=== PATIENT | male | born 1955 | race Caucasian/White ===

== ENCOUNTER → 2018-08-29 | Outpatient (REF) | payer MEDICARE, MEDICAID ==
[~2018-08-29] MED LIST: ACET65TA; BABY81CH; BISA10SU2; COLA100C2; COUM10TA; KEPPRA; LIPI20TA; LOPR50TA; ONDA-1; SODIUM CLORIDE; TRAVOPROST; senna
== END ==
LOC: M LAB REF 15:37
PROVIDERS: ATTEND Nurse Practitioner Family
DX: B35.1 Tinea unguium (principal)

== ENCOUNTER → 2019-02-10 | Outpatient (REF) | payer MEDICARE, MEDICAID | LOC: M LAB REF 16:24 | PROVIDERS: ATTEND Nurse Practitioner Family | DX: S69.92XD Unspecified injury of left wrist, hand and finger(s), subsequent encounter (principal); B35.1 Tinea unguium ==

== ENCOUNTER → 2020-01-06 | Outpatient (CLI) | payer MEDICARE, MEDICAID ==
--- NOTE | 2020-01-14 09:47 | REP ---
BILATERAL LOWER EXTREMITY ARTERIAL DOPPLER ULTRASOUND HISTORY: Peripheral vascular disease. FINDINGS: Ankle-brachial indices could not be accomplished on either side due to noncompressible vessels. Mild plaquing is observed bilaterally in the upper legs. No significant stenosis is identified. Triphasic and biphasic arterial Doppler waveforms are noted throughout bilaterally. Right lower extremity arterial Doppler velocity chart: Right CVA PSV 76 cm/s. Profunda 36. Proximal SFA 47. Mid SFA 50. Distal SFA 45. Popliteal 34. Proximal YANELI 86. Tibioperoneal trunk 40. Proximal REFRIGERATION ENGINEER 44. Distal REFRIGERATION ENGINEER 50. Distal YANELI 87. Left lower extremity arterial Doppler velocity chart: Left CVA PSV 74 cm/s. Profunda 58. Proximal SFA 59. Mid SFA 69. Distal SFA 61. Popliteal 31. Proximal YANELI 87. Tibioperoneal trunk 52. Proximal REFRIGERATION ENGINEER 32. Distal REFRIGERATION ENGINEER 48. Distal YANELI 103. MTDD
== END ==
LOC: M RAD 13:00
PROVIDERS: ATTEND Family Medicine
DX: I73.9 Peripheral vascular disease, unspecified (principal)

== ENCOUNTER 2023-04-05 10:40 | Day surgery (SDC) | payer MEDICARE, MEDICAID ==
[~2023-04-05] VITALS: Ht 170.2 cm; Wt 93.0 kg
[~2023-04-05 10:40] MED LIST changes: +ASPI-161 PO; +ATOR40TA75 PO; +BSS IRRIG/VANCO(10MG)/TOBRA(5MG)/EPINEPH(1:1000-0.5CC)500ML BAG-ORONLY IR ONE; +CYCLOPENTOLATE 1% OPHTH SOLN 2ML BTL OD SCH; +ELIQ5TAB PO; +LEVE10003 PO; +LEVE250T5 PO; +LIDOCAINE 1% SDV 5ML VIAL As Ordered ONE; +LIDOCAINE 3.5 % 1ML OPHTH TOPICAL GEL OU ONE; +METH-855 PO; +METO50TA7 PO; +OFLOXACIN 0.3 % (OCUFLOX) OPTH SOL 5ML OD ONE; +PHENYLEPHRINE 10% OPHTH SOL 5ML OD PRN; +PHENYLEPHRINE 2.5% OPHTH SOL 2ML OD SCH; +SERT25TA21 PO; +TROPICAMIDE 1% OPHTH SOLN 15ML OD SCH; +TRUL10IN; +VITA500C24 PO; +XALA0.007
[2023-04-05] MEDS ORDERED: MIDAZOLAM INJ 2MG/2ML VIAL As Ordered ONE (12:22)
[2023-04-05] MEDS ORDERED: fentaNYL 100 MCG/2 ML INJECTION As Ordered ONE (12:22)
[2023-04-05 14:03] VITALS: BP 139/69; TEMP 96.6; O2SAT 94
== END 2023-04-05 13:55 | disposition home or self-care (01) ==
LOC: M SDC 10:40
PROVIDERS: ATTEND Ophthalmology
DX: E11.36 Type 2 diabetes mellitus with diabetic cataract (principal); H25.11 Age-related nuclear cataract, right eye; I10 Essential (primary) hypertension; I48.91 Unspecified atrial fibrillation; E78.00 Pure hypercholesterolemia, unspecified; Z79.899 Other long term (current) drug therapy; Z79.01 Long term (current) use of anticoagulants; Z79.82 Long term (current) use of aspirin; Z86.711 Personal history of pulmonary embolism; Z86.73 Personal history of transient ischemic attack (TIA), and cerebral infarction without residual deficits
CPT/HCPCS: 66984; J2250; J3010; V2632